=== PATIENT | female | born 1950 | race Caucasian/White ===

== ENCOUNTER → 2016-05-08 | Outpatient (CLI) | payer BC ==
[~2016-05-08] MED LIST: EXCEDRIN MIGRAI1 TA1 PO; PEPCID AC PO
--- NOTE | ~2016-05-08 | MY11 ---
[facility] A Service of [facility] & [facility] RADIOLOGY TEXT RESULTS PATIENT: REBECCA LYNN LOCATION: [facility] : 54 UNIT #: [id number] AGE: [address]: Mary Huertas MD SEX: F ORDER DR: [id number] [address] [address] [id number] MR#: [id number] Acc #: [id number] NAME: REBECCA LYNN. : 1950 SEX: F STUDY DATE/TIME: 05/08/2016 13:17 UNIT: [facility] ROOM: STUDY DESCRIPTION: MY Mammogram Screening Dig Pablo Attending Physician: Ritchie Huertas M.D. Referring Physician: Ritchie Huertas M.D. Ordering Physician: Ritchie Huertas M.D. Primary Care Physician: Trever Richardson D.O. MEDICAL IMAGING REPORT This report is preliminary unless electronic signature is present. EXAM Digital screening mammogram, 05/08/2016 HISTORY 65-year-old woman with previous implants 1998, explantation 2004. Right breast biopsy 10 years prior. COMPARISON Mammograms date to 06/29/2005 with followup images 2007, 2009, 2010 and 01/28/2013. FINDINGS Digital imaging of each breast was completed utilizing screening protocol. An additional exaggerated craniocaudal view of the right breast is included. Review of includes FDA-approved CAD device. Numerous silicone filled right axillary lymph nodes are again identified. These almost completely obscure the pectoral muscle and extend to the edge of the of the receptor. The true extent of the adenopathy could be better defined with noncontrast CT and/or breast MRI. The right breast projects somewhat smaller than the left. There is minimal residual fibroglandular parenchyma. I see no suspicious breast mass. There are no interval occurring microcalcifications and no architectural deformity. IMPRESSION Pathologic right axillary lymph node nodes filled with silicone. Overall these appear stable. Size, asymmetry of the breast stable. No suspicious mammographic finding. Annual screening recommended. Patients over the age of 40 are entered into a reminder system with target due date for the next mammogram. A result letter will also be sent to the patient. BIRADS: 2 Benign Finding STS. [facility] A Service of [facility] / [facility] RADIOLOGY TEXT RESULTS PATIENT: REBECCA LYNN LOCATION: [facility] : 54 UNIT #: [id number] AGE: [address]: Mary Huertas MD SEX: F ORDER DR: Dictated by... Medhat Persaud M.D. THIS IS AN ELECTRONICALLY VERIFIED REPORT Medhat Persaud M.D. at 05/09/2016 8:12 AM Juliet TD: 05/08/2016 16:28 JOB #: [id number] MEDICAL IMAGING REPORT Page 1 of 1
== END | disposition home or self-care (01) ==
LOC: SMAM 12:54
DX: Z12.31 Encounter for screening mammogram for malignant neoplasm of breast (principal); N64.89 Other specified disorders of breast
CPT/HCPCS: G0202